=== PATIENT | female | born 1945 | race Caucasian/White ===

== ENCOUNTER 2023-05-11 12:51 | Emergency (ER) | payer MEDICARE ==
[~2023-05-11] VITALS: Ht 180.3 cm; Wt 86.0 kg
[~2023-05-11 12:51] MED LIST: FEXO180T94 PO; ROSU5TAB PO; TRIA1TAB3 PO
[2023-05-11] MEDS ORDERED: BUPIVAcaine/PF 2.5 mg/ml (0.25%) 30ml vial IJ ONE (14:45)
[2023-05-11] MEDS: BUPIVAcaine/PF 2.5mg/ml (0.25%) 10ml vial IJ ONE (15:13)
[2023-05-11] MEDS: LIDOcaine 1% 30ml preserv. free vial IJ STA (15:14)
[2023-05-11] MEDS ORDERED: HYDR-3965 PO (16:47)
[2023-05-11 16:52] VITALS: BP 145/76; PULSE 76; RESP 17; TEMP 98.2; O2SAT 98
== END 2023-05-11 16:53 | disposition home or self-care (01) ==
LOC: ER 12:51
DX: S52.501A Unspecified fracture of the lower end of right radius, initial encounter for closed fracture (principal); S52.601A Unspecified fracture of lower end of right ulna, initial encounter for closed fracture; E78.00 Pure hypercholesterolemia, unspecified; I10 Essential (primary) hypertension; Z88.2 Allergy status to sulfonamides; Z88.6 Allergy status to analgesic agent; Z79.899 Other long term (current) drug therapy; W01.0XXA Fall on same level from slipping, tripping and stumbling without subsequent striking against object, initial encounter; Y93.89 Activity, other specified; Y92.89 Other specified places as the place of occurrence of the external cause; Y99.8 Other external cause status
CPT/HCPCS: 25605; 73100; 73110; 99284